=== PATIENT | male | born 1990 | race Caucasian/White ===

== ENCOUNTER 2023-09-15 08:33 | Emergency (ER) | payer BC, SELFPAY ==
[2023-09-15 08:37] VITALS: BP 163/81; PULSE 85; RESP 18; TEMP 36.6; O2SAT 99
--- NOTE | 2023-09-15 08:52 | ED.GENADUL_ITS ---
Discharge Plan Disposition Patient Disposition: Home Condition: Improving Discharge Details Clinical Impression: External hemorrhoid ED Provider: Jero Herrera Home Meds and New Rx's Prescriptions: New hydrocortisone [Anusol-HC] 2.5 % cream with perineal applicator 1 applic VT QD-BID PRN (Reason: hemorrhoids) Qty: 30 0RF docusate sodium [Colace] 100 mg capsule 100 mg PO DAILY 15 Days Qty: 15 0RF Discharge Instructions Instructions: Hemorrhoids (ED) Additional Instructions: Please follow-up closely with colorectal team. Return to the emergency department for any worsening symptoms HPI General Date/Time Provider Initiated Documentation: 09/15/23 08:35 . HPI Narrative: 33-year-old male presents with acute on chronic perianal pain, recent colonoscopy found to have multiple hemorrhoids, denies abdominal pain or other systemic symptoms. No bleeding Related Data Home Medications Medication Instructions Recorded Confirmed docusate sodium 100 mg capsule 100 mg PO DAILY 15 days #15 caps 09/15/23 (Colace) hydrocortisone 2.5 % topical cream 1 applic VT QD-BID PRN hemorrhoids 09/15/23 with perineal applicator #30 grams (Anusol-HC) Previous Rx's Medication Instructions Recorded docusate sodium 100 mg capsule 100 mg PO DAILY 15 days #15 caps 09/15/23 (Colace) hydrocortisone 2.5 % topical cream 1 applic VT QD-BID PRN hemorrhoids 09/15/23 with perineal applicator #30 grams (Anusol-HC) Allergies Allergy/AdvReac Type Severity Reaction Status Date / Time amoxicillin Allergy Mild rash Verified 09/15/23 08:35 General Stated Complaint: Abd Prob LESLY: 3 Review of Systems Narrative: Review of Systems Constitutional: negative Eyes: negative ENT: negative Cardiovascular: negative Respiratory: negative Gastrointestinal: negative : Perianal pain Musculoskeletal: negative Skin: negative Neurologic: negative Psych: negative Exam Narrative Exam Narrative: Physical Examination General: alert, awake, cooperative GI: abdomen soft, non-tender, non-distended; no palpable mass or he patosplenomegaly; multiple small external hemorrhoids nonthrombosed nonbleeding Skin: no lesions, rashes or trauma appreciated Neuro: AAOx3, normal speech, moving all extremities Course Vital Signs Vital signs: Vital Signs Temperature 36.6 C 09/15/23 08:37 Pulse 85 09/15/23 08:37 Respiratory Rate 18 05/14/24 08:37 Blood Pressure 163/81 H 09/15/23 08:37 Pulse Oximetry 99 09/15/23 08:37 Temperature 36.6 C 09/15/23 08:37 Temperature Source Temporal Artery Scan 09/15/23 08:37 Pulse 85 09/15/23 08:37 Respiratory Rate 18 09/15/23 08:37 Respiratory Effort Normal, Non-Labored 09/15/23 08:40 Blood Pressure 163/81 H 09/15/23 08:37 Blood Pressure Position Sitting 09/15/23 08:37 Pulse Oximetry 99 09/15/23 08:37 Oxygen Delivery Method Room Air 09/15/23 08:37 Oxygen Flow Rate 0 09/15/23 08:37 Pain Level 10 09/15/23 08:37 Comment 400mg Advil at 0430 09/15/23 08:37 Medical Decision Making 33-year-old male presents with acute on chronic perianal pain, recent colonoscopy normal, patient has multiple external hemorrhoids nonthrombosed nonbleeding. Afebrile nontoxic nonperitoneal. Pain likely related to hemorrhoids. Will apply Anusol and viscous lidocaine. Will place patient on stool softener regiment. No evidence to suggest complication from colonoscopy such as perforation infection or laceration. No evidence of thrombosed hemorrhoid. Patient has no bleeding or discharge. Will attempt to control pain. Will likely have follow-up with general surgery and/or colorectal team at [facility] to consider hemorrhoidectomy for worsening or persistent symptoms. 9: 49 patient resting comfortably no acute distress. Will follow-up with colorectal team. Return precautions given Quality:SDOH Health Related Social Needs: No Data to Display COUNT INCLUDES THE [facility] All Active Problems (Updated 09/15/23 @ 09:50 by Jero Herrera MD) External hemorrhoid (Acute) Social History Smoking/Tobacco Use Status: Never Smoking risk assessment performed?: Yes Alcohol Intake: current Alcohol Intake frequency: holidays/special occasions only Drug use: Never Substance use type: does not use Housing: house Do you feel safe at home: Yes Do you feel safe in your relationship?: Yes
[2023-09-15] MEDS: Hydrocortisone 25 MG SUPP PR (08:59)
[2023-09-15] MEDS: Docusate Sodium 100 MG CAP PO (08:59)
[2023-09-15] MEDS: Lidocaine 2% Jelly 6 ML SYR (09:00)
[2023-09-15 10:04] VITALS: BP 163/81; PULSE 85; RESP 18; TEMP 36.6; O2SAT 99
== END 2023-09-15 10:05 | disposition home or self-care (01) ==
LOC: ER 10:04
PROVIDERS: Emergency Provider Emergency Medicine
DX: K64.4 Residual hemorrhoidal skin tags (principal)
CPT/HCPCS: 99283